=== PATIENT | female | born 1930 | race Two or more races ===

== ENCOUNTER 2019-11-29 15:38 | Emergency (ER) | payer OTHER ==
[~2019-11-29] VITALS: Ht 152.4 cm; Wt 46.3 kg
[2019-11-29] MEDS ORDERED: CHOL10002 PO (15:52)
[2019-11-29] MEDS ORDERED: ATOR20TA PO (15:52)
[2019-11-29] MEDS ORDERED: ASPI-605 PO (15:52)
[2019-11-29] MEDS ORDERED: ONDANSETRON 4 MG/2 ML VIAL IV ONE (16:00)
[2019-11-29] MEDS ORDERED: IV NS 1000 ML 1,000 ML IV ONE (16:00)
[2019-11-29] MEDS ORDERED: PANTOPRAZOLE SODIUM 40 MG VIAL IV ONE (16:00)
[2019-11-29] MEDS ORDERED: PANTOPRAZOLE SODIUM 40 MG VIAL ONE (16:02)
[2019-11-29] MEDS ORDERED: ONDANSETRON 4 MG/2 ML VIAL ONE (16:02)
[2019-11-29 16:26] LABS: BASOPHILS % (AUTO) 0.8 % (0.0-2.0); EOSINOPHILS # (AUTO) 0.2 K/uL (0.0-0.7); EOSINOPHILS % (AUTO) 3.4 % (0.0-7.0); HEMATOCRIT 22.8 % (31.2-41.9); HEMOGLOBIN 7.7 g/dL (10.9-14.3); LYMPHOCYTES # (AUTO) 1.3 K/uL (20.0-40.0); LYMPHOCYTES % (AUTO) 28.3 % (20.5-51.5); MEAN CORPUSCULAR HEMOGLOBIN 30.4 uug (24.7-32.8); MEAN CORPUSCULAR HGB CONC 34 g/dL (32.3-35.6); MEAN CORPUSCULAR VOLUME 90.5 fL (75.5-95.3); MONOCYTES # (AUTO) 0.5 K/uL (2.0-10.0); MONOCYTES % (AUTO) 10.3 % (0.0-11.0); NEUTROPHILS # (AUTO) 2.6 K/uL (1.8-8.9); NEUTROPHILS % (AUTO) 57.2 % (38.5-71.5); PLATELET COUNT (AUTO) 213 K/uL (179-408); RED BLOOD CELL COUNT(AUTO) 2.52 MIL/uL (3.63-4.92); WHITE BLOOD COUNT (AUTO) 4.5 K/uL (3.8-11.8)
[2019-11-29 16:32] LABS: CREATININE 0.7 mg/dL (0.6-1.3)
[2019-11-29 16:45] LABS: BILIRUBIN,TOTAL 0.3 mg/dL (0.2-1.0); TOTAL PROTEIN, SERUM 5.2 g/dL (6.4-8.2)
[2019-11-29] MEDS: IV NS 1000 ML 1,000 ML IV ONE ×2 (17:00→17:31)
[2019-11-29] MEDS ORDERED: CEFTRIAXONE /D5W 50ML IVPB **ER PYXIS IV ONE (17:14)
[2019-11-29] MEDS ORDERED: AZITHROMYCIN 500MG/ D5W 250ML IVPB **ER PYXIS ONLY IV ONE (17:14)
[2019-11-29] MEDS ORDERED: CEFTRIAXONE 1 G in IV DEXTROSE 5% 50 ML IV ONE (17:15)
[2019-11-29] MEDS: AZITHROMYCIN IV 500 MG in IV DEXTROSE 5% 250 ML IV ONE ×2 (17:15→17:31)
[2019-11-29] MEDS ORDERED: LORAZEPAM 2 MG/1 ML VIAL ONE (17:41)
[2019-11-29] MEDS ORDERED: LORAZEPAM 2 MG/1 ML VIAL IV ONE (17:45)
--- NOTE | 2019-11-29 17:45 | NUR ---
pt very restless, wants to go home, in spite of all the comfort/safety measures provided. notified.
--- NOTE | 2019-11-29 18:20 | NUR ---
called [facility].
--- NOTE | 2019-11-29 19:00 | NUR ---
dr. sheikh from [facility] called and talked to dr. lima.
--- NOTE | 2019-11-29 19:16 | NUR ---
pt awake, more comfortable. vss.
--- NOTE | 2019-11-29 19:18 | NUR ---
perineal hygiene provided for pt. no bm.
--- NOTE | 2019-11-29 21:44 | NUR ---
Report given to LAKEISHA Simpson at [facility]. Transport ETA [id number]
--- NOTE | 2019-11-29 22:49 | NUR ---
Transport here for patient pickup and transportation to [facility] .
== END 2019-11-29 23:00 | disposition short-term general hospital (02) ==
LOC: ER 15:44
DX: E87.1 Hypo-osmolality and hyponatremia (principal); J18.9 Pneumonia, unspecified organism; Z20.828 Contact with and (suspected) exposure to other viral communicable diseases; K52.9 Noninfective gastroenteritis and colitis, unspecified; D64.9 Anemia, unspecified; R41.0 Disorientation, unspecified; I44.0 Atrioventricular block, first degree; K40.90 Unilateral inguinal hernia, without obstruction or gangrene, not specified as recurrent; Z90.710 Acquired absence of both cervix and uterus; E78.00 Pure hypercholesterolemia, unspecified; Z79.899 Other long term (current) drug therapy; Z79.82 Long term (current) use of aspirin; I51.7 Cardiomegaly
CPT/HCPCS: 71045; 74176; 80053; 83605; 83690; 83880; 84145; 84484; 85025; 85730; 87040 ×2; 93005; 96361; 96365; 96366; 96368; 96372; 96375; 99291; C9113; J0456; J0696; J2060; J2405; U0003; 36415; 70030-TC; J7030; J7040